=== PATIENT | female | born 2000 | race Two or more races ===

== ENCOUNTER 2019-12-06 10:04 | Inpatient (IN) | payer MEDICAID, OTHER ==
[~2019-12-06] VITALS: Ht 162.6 cm; Wt 55.8 kg
[2019-12-06] MEDS ORDERED: PROCHLORPERAZINE EDISYLATE 5 MG/ML 2ML VIAL IV ONE (11:00)
[2019-12-06] MEDS ORDERED: MORPHINE SULF INJ 2 MG/ML SYRINGE 1ML IV ONE (11:00)
[2019-12-06 11:10] LABS: Basophils # (auto) 0 10 ^3/uL (0-0.2); Basophils % (auto) 0.3 % (0.0-2.0); Eosinophils # (auto) 0.1 10 ^3/uL (0-0.8); Eosinophils % (auto) 0.6 % (0.0-7.0); Hematocrit 39.9 % (36.0-46.0); Hemoglobin 13.9 g/dL (12.2-16.2); Lymphocytes # (auto) 3.2 10 ^3/uL (0.4-5.4); Lymphocytes % (auto) 34.5 % (10.0-50.0); Mean Corpuscular Hemoglobin 28.2 pg (28.0-32.0); Mean Corpuscular Hgb Conc. 34.7 g/dL (32.0-36.0); Mean Corpuscular Volume 81.3 fL (80.0-100.0); Monocytes # (auto) 0.8 10 ^3/uL (0-1.3); Monocytes % (auto) 8.7 % (0.0-12.0); Neutrophils # (auto) 5.1 10 ^3/uL (1.6-8.6); Neutrophils % (auto) 55.9 % (37.0-80.0); Nucleated Red Blood Cells % 0.1 %; Platelet Count (auto) 300 10^3/uL (140-450); Red Blood Cells 4.91 10^6/uL (4.0-5.20); Red Cell Distribution Width 14.9 % (11.8-14.3); White Blood Cell 9.2 10^3/uL (4.4-10.8)
[2019-12-06 11:13] LABS: Urine Bacteria FEW /hpf (None Seen); Urine Blood 2+ /uL (Negative); Urine Hyaline Cast MANY /lpf (0 - 2); Urine Mucus FEW (None Seen); Urine Specific Gravity 1.018 (1.001-1.035); Urine WBC 320 /hpf (0 - 5); Urine WBC Clumps PRESENT /hpf (None Seen)
[2019-12-06 11:27] LABS: BUN/Creatinine Ratio 9.7; Calcium 9.7 mg/dL (8.5-10.1); Potassium 3.1 mmol/L (3.5-5.1)
[2019-12-06] MEDS ORDERED: SODIUM CHLORIDE 0.9% 1,000 ML IVB ONE ×2 (11:28→13:57)
[2019-12-06 11:46] LABS: Magnesium 1.6 mg/dL (1.6-2.6)
[2019-12-06 12:01] LABS: Amphetamine Screen, Urine NEGATIVE (NEGATIVE); Barbiturate Scree,Urine NEGATIVE (NEGATIVE); Benzodiazephine Screen, Urine NEGATIVE (NEGATIVE); Cannabinoid Screen, Urine POSITIVE (NEGATIVE); Cocaine Screen, Urine NEGATIVE (NEGATIVE); Opiate Scree,Urine NEGATIVE (NEGATIVE); Phencyclidine Screen, Urine NEGATIVE (NEGATIVE)
[2019-12-06] MEDS ORDERED: PROMETHAZINE HCL 25 MG/ML 1ML IV PRN (14:00)
[2019-12-06] MEDS ORDERED: HYDROmorphone HCL 2 MG/ML VL IV ONE (14:00)
[2019-12-06] MEDS ORDERED: POTASSIUM EFFERVESENT TAB 25 MEQ PO ONE (14:00)
[2019-12-06] MEDS ORDERED: cefTRIAXone 1GM/50ML D5W 50 ML IV ONE (14:00)
[2019-12-06] MEDS ORDERED: MORPHINE SULF INJ 2 MG/ML SYRINGE 1ML IV PRN (15:45)
[2019-12-06] MEDS ORDERED: NITROGLYCERIN 0.4 MG SL TAB SL PRN (15:45)
[2019-12-06] MEDS: cefTRIAXone 1GM/50ML D5W 50 ML IV SCH (15:50)
[2019-12-06 16:27] LABS: CRP High Sensitivity 0.04 mg/dL (< 0.3)
[2019-12-06] MEDS: SODIUM BICARBONATE 50ML VIAL 50 ML in D5W/SOD CHL 0.45% 1,000 ML IV SCH (16:37)
--- NOTE | 2019-12-06 17:23 | NUR ---
Telemetry admit from ER DERRICK DOHERTY admitted to Telemetry unit after SBAR received. Patient oriented to Estee Morrissey, primary RN, unit, room, bed, and unit policies regarding patient care and visiting hours. Patient now on continuous telemetry monitoring, tele box #51 and telemetry reading on arrival to unit is ST. Patient placed on bedside oxygen, weighed by bedscale and encouraged to call if they need something. All questions and concerns addressed, patient verbalized understanding.
--- NOTE | 2019-12-06 17:24 | NUR ---
Pain Patient is c/o severe pain ,rates it 10/10. Patient is crying and screaming " I cant wait please" Patient's HR is in the 150's . Attempting to calm the patient. Will medicate as prescribed by MD. Bed at lowest locked position, bed side rails up x2. Call light within reach.
[2019-12-06] MEDS: HYDROmorphone HCL 2 MG/ML VL IV PRN ×3 (17:34→23:38)
--- NOTE | 2019-12-06 19:20 | NUR ---
Opening note pt found resting in left lateral position with eyes closed, no visible distress or discomfort at this time. Respirations are currently even and nonlabored on room air. call light is in reach, bed in low locked position.
--- NOTE | 2019-12-06 19:29 | NUR ---
[facility] collected MRSA swab from r/l nare. Swab send to Lab via [facility] system . Patient tolerated well.
--- NOTE | 2019-12-06 19:30 | NUR ---
closing note Patient is comfortably resting in bed, breath sounds are even and unlabored . No c/o pain . Bed is at lowest locked position , call light is within reach and call light is within reach. Care endorsed to NOC RN
[2019-12-06 20:07] LABS: Albumin 3.1 g/dL (3.4-5.0); Calcium 8.9 mg/dL (8.5-10.1); Potassium 3.2 mmol/L (3.5-5.1)
[2019-12-06 20:08] LABS: Phosphorus 4.3 mg/dL (2.5-4.90); Uric Acid 6.5 mg/dL (2.6-6.0)
[2019-12-06 20:10] LABS: Bilirubin, Total 0.3 mg/dL (0.2-1.0); Total Protein 6.2 g/dL (6.4-8.2)
[2019-12-06 20:14] LABS: Protein, Urine 128.2 mg/dL (0.0-11.9)
--- NOTE | 2019-12-06 20:20 | NUR ---
pt is having abdominal pain at her right lower quadrant. she rates the pain as a 10/10. pt will be medicated.
[2019-12-06 22:00] VITALS: BP 148/105
--- NOTE | 2019-12-06 23:30 | NUR ---
pt has c/o pain, rating of 10/10. pt says pain is "unbearable" at right lower quadrant of abdomen. pt will be medicated for pain.
--- NOTE | 2019-12-07 00:52 | NUR ---
endorsed care to Anila LOVING
--- NOTE | 2019-12-07 01:00 | NUR ---
Assumed care from FABIENNE Reilly, patient sleeping at this time and not in distress. Safety precaution in place, will continue to monitor
[2019-12-07] MEDS: HYDROmorphone HCL 2 MG/ML VL IV PRN ×4 (02:38→11:24)
[2019-12-07] MEDS ORDERED: LABE200T18 PO (02:40)
[2019-12-07 05:00] VITALS: BP 150/87
[2019-12-07] MEDS ORDERED: SODIUM BICARBONATE 8.4 % INJ 50ML VIAL IV ONE (05:31)
[2019-12-07] MEDS: SODIUM BICARBONATE 50ML VIAL 50 ML in D5W/SOD CHL 0.45% 1,000 ML IV SCH (06:06)
[2019-12-07 06:24] LABS: Basophils # (auto) 0.1 10 ^3/uL (0-0.2); Basophils % (auto) 0.7 % (0.0-2.0); Eosinophils # (auto) 0.3 10 ^3/uL (0-0.8); Eosinophils % (auto) 3.7 % (0.0-7.0); Hematocrit 32.3 % (36.0-46.0); Hemoglobin 11.5 g/dL (12.2-16.2); Lymphocytes # (auto) 3.9 10 ^3/uL (0.4-5.4); Lymphocytes % (auto) 49.3 % (10.0-50.0); Mean Corpuscular Hemoglobin 28.7 pg (28.0-32.0); Mean Corpuscular Hgb Conc. 35.8 g/dL (32.0-36.0); Mean Corpuscular Volume 80.4 fL (80.0-100.0); Monocytes # (auto) 0.7 10 ^3/uL (0-1.3); Monocytes % (auto) 8.6 % (0.0-12.0); Neutrophils % (auto) 37.7 % (37.0-80.0); Platelet Count (auto) 211 10^3/uL (140-450); Red Blood Cells 4.02 10^6/uL (4.0-5.20); Red Cell Distribution Width 14.7 % (11.8-14.3); White Blood Cell 7.9 10^3/uL (4.4-10.8)
[2019-12-07 06:43] LABS: Calcium 8.8 mg/dL (8.5-10.1)
[2019-12-07 06:48] LABS: BUN/Creatinine Ratio 20.7; Bilirubin, Total 0.4 mg/dL (0.2-1.0); Total Protein 6.1 g/dL (6.4-8.2)
[2019-12-07 06:54] LABS: Potassium 2.7 mmol/L (3.5-5.1)
--- NOTE | 2019-12-07 06:58 | NUR ---
Received a critical Potassium of 2.7. Paged hospitalist, awaiting call back
--- NOTE | 2019-12-07 07:13 | NUR ---
Hospitalist Gen called and updated on patient's status and critical Potassium. New order received at this time and read back. Will put in order and endorse to dayshift RN
[2019-12-07] MEDS ORDERED: POTASSIUM CHL 20 Meq TABLET PO ONE ×2 (07:15→08:45)
[2019-12-07] MEDS: ONDANSETRON HCL 4 MG/2 ML VIAL IV PRN ×2 (07:40→18:38)
--- NOTE | 2019-12-07 07:40 | NUR ---
Opening Note Assumed pt care from NOC nurse. Pt is a/ox4 with no s/s of SOB. Pt has moderate c/o pain 8/10 located in her abdomen; discussed next available pain medication. Discussed POC with pt; pending GI and Nephro consults; pt verbalized understanding. Safety measures maintained with call light within reach, bed in lowest position and side rails up. Will continue to monitor.
--- NOTE | 2019-12-07 07:50 | NUR ---
Elevated HR HR of 160 bpm reading on tele monitor. Assessed pt; currently in 8 pain. Discussed next available pain medication and encouraged pt to take deep breaths, hot packs provided. Will continue to monitor.
[2019-12-07] MEDS: cefTRIAXone 1GM/50ML D5W 50 ML IV SCH (08:26)
[2019-12-07 09:01] VITALS: BP 146/94
[2019-12-07] MEDS: SODIUM CHLORIDE 0.9% 1,000 ML IV SCH ×2 (10:04→23:24)
[2019-12-07] MEDS ORDERED: POTASSIUM CHLORIDE 40 MEQ, LIDOCAINE 1% (LOCAL ANESTH.) 4 ML in SODIUM CHL 0.9% 100 ML IV ONE (10:45)
[2019-12-07] MEDS ORDERED: GOLYTELY 4L KIT PO ONE (10:45)
[2019-12-07] MEDS: HYOSCYAMINE SULF 0.125 MG ODT TAB PO PRN ×2 (11:25→14:48)
[2019-12-07 11:36] LABS: INR 1.08 (0.9-1.15)
--- NOTE | 2019-12-07 12:10 | NUR ---
Dr. Humphrey at Bedside. New orders received. Read back and verified.
[2019-12-07 12:58] VITALS: BP 149/100
[2019-12-07] MEDS: LORazepam 0.5 MG TAB PO PRN (13:01)
[2019-12-07] MEDS ORDERED: LABETALOL HCL 200 MG TAB PO ONE (13:15)
[2019-12-07] MEDS ORDERED: amLODIPine BESYLATE 5 MG TAB PO ONE (14:00)
--- NOTE | 2019-12-07 14:11 | NUR ---
Paged MD Patient pain medication no longer available, patient c/o abdominal pain 06/08 inquiring about possible pain medication.
--- NOTE | 2019-12-07 14:39 | NUR ---
Paged Dr Humphrey Second page regarding the unavilability of pain medication. Will continue to monitor. Pt is c/o 06/08 pain. Addendum: 12/07/19 at 1441 by SHIELA KHAN RN RN called back. Orders given, read back and verified. Will implement.
[2019-12-07] MEDS: MORPHINE SULF INJ 2 MG/ML SYRINGE 1ML IV PRN ×2 (14:49→20:51)
[2019-12-07 15:16] LABS: Urine Bacteria NONE SEEN /hpf (None Seen); Urine Blood 3+ /uL (Negative); Urine Specific Gravity 1.009 (1.001-1.035); Urine WBC 9 /hpf (0 - 5)
[2019-12-07 15:19] LABS: Protein, Urine 20.6 mg/dL (0.0-11.9)
--- NOTE | 2019-12-07 16:04 | NUR ---
Pt C/O Pain Pt c/o pain 9/10 located in her abdomen. Pt provided available pain medication and does not currently have any available. Pt provided hot packs and encouraged pt to take deep breaths. Will continue to monitor.
[2019-12-07 17:30] VITALS: BP 118/80
--- NOTE | 2019-12-07 17:45 | NUR ---
Pt Encouraged to Drink Golytely Pt encouraged to drink bowel prep. Pt provided education on need to consume prep before procedure for tomorrow; pt verbalized understanding.
--- NOTE | 2019-12-07 19:20 | NUR ---
opening note pt A&Ox4. respirations even and nonlabored on room air. POC discussed with pt, and pt was advised to consume golytely before midnight, for up coming procedure on 12-08-19. pt verbalized understanding. pt is ambulatory.
--- NOTE | 2019-12-07 20:25 | NUR ---
pain pt is complaints of pain at abdomen area, 10/10 severity. pt will be medicated upon next administration time. pt offered hot packs at this time.
[2019-12-07 22:05] VITALS: BP 113/67
[2019-12-07] MEDS: LABETALOL HCL 200 MG TAB PO SCH (22:09)
[2019-12-08] MEDS: ONDANSETRON HCL 4 MG/2 ML VIAL IV PRN ×3 (01:53→21:21)
--- NOTE | 2019-12-08 02:45 | NUR ---
pain pt is complaints of pain at abdomen area, 10/10 severity. pt will be medicated
[2019-12-08] MEDS: MORPHINE SULF INJ 2 MG/ML SYRINGE 1ML IV PRN ×4 (03:02→21:21)
[2019-12-08 05:00] VITALS: BP 102/60
[2019-12-08 06:34] LABS: Basophils # (auto) 0 10 ^3/uL (0-0.2); Basophils % (auto) 0.7 % (0.0-2.0); Eosinophils # (auto) 0.2 10 ^3/uL (0-0.8); Eosinophils % (auto) 3.3 % (0.0-7.0); Hematocrit 29.6 % (36.0-46.0); Hemoglobin 10.6 g/dL (12.2-16.2); Lymphocytes # (auto) 3.2 10 ^3/uL (0.4-5.4); Lymphocytes % (auto) 46.8 % (10.0-50.0); Mean Corpuscular Hemoglobin 28.3 pg (28.0-32.0); Mean Corpuscular Hgb Conc. 35.7 g/dL (32.0-36.0); Mean Corpuscular Volume 79.3 fL (80.0-100.0); Monocytes # (auto) 0.5 10 ^3/uL (0-1.3); Monocytes % (auto) 7.9 % (0.0-12.0); Neutrophils # (auto) 2.8 10 ^3/uL (1.6-8.6); Neutrophils % (auto) 41.3 % (37.0-80.0); Nucleated Red Blood Cells % 0.1 %; Platelet Count (auto) 200 10^3/uL (140-450); Red Blood Cells 3.73 10^6/uL (4.0-5.20); Red Cell Distribution Width 14.6 % (11.8-14.3); White Blood Cell 6.9 10^3/uL (4.4-10.8)
[2019-12-08 06:51] LABS: BUN/Creatinine Ratio 8.5; Calcium 8.4 mg/dL (8.5-10.1)
--- NOTE | 2019-12-08 07:08 | NUR ---
closing note pt is A&Ox4. pt c/o of abdominal and back pain 06/08. pt is ready for todays procedure (colonoscopy). pt will be medicated upon next allowable administration time. pt was given hot packs to sooth the pain. bed is in low locked position, call light within reach.
--- NOTE | 2019-12-08 07:20 | NUR ---
Procedure Prep Spoke with Chayito in Pre-Op. RN is aware of pt not completing her golytely prep but is aware of pt's bowel movement status. requested that pt be brought to Pre-Op at 0900. Notified pt. Will continue to monitor.
--- NOTE | 2019-12-08 07:30 | NUR ---
Opening Note Assumed pt care from NOC RN. Pt is a/ox4 with no s/s of distress or SOB. Pt is currently laying in bed with c/o pain 9/10 to abdomen. Discussed next available pain medication with pt and provided her with a hot pack to aid in pain relief. Discussed POC and scheduled colonoscopy with pt; pt verbalized understanding. Safety measures maintained with call light within reach, bed in lowest position and side rails up. Will continue to monitor.
--- NOTE | 2019-12-08 08:52 | NUR ---
Patient taken down to OR Patient taken down via gurney. Patient is A&o X4, no signs of distress. Report given to pre-op staff. All questions were answered.
[2019-12-08] MEDS ORDERED: LIDOCAINE 1% HCL (LOCAL ANESTH.) INJ 20ML MDV ONE (08:57)
[2019-12-08 09:00] VITALS: BP_SYST 128; BP_SYST 97; BP_DIAS 59; BP_DIAS 63
[2019-12-08] MEDS ORDERED: SODIUM CHLORIDE LOCK 10 ML ONE (09:08)
[2019-12-08] MEDS ORDERED: MIDAZOLAM HCL 1MG/1ML-2 ML VIAL ONE (09:08)
[2019-12-08] MEDS ORDERED: fentaNYL CITRATE 100 MCG/2 ML VL ONE (09:08)
[2019-12-08] MEDS ORDERED: ONDANSETRON HCL 4 MG/2 ML VIAL ONE (09:08)
[2019-12-08] MEDS ORDERED: PROPOFOL 10 MG/ML 20 ML IV ONE (09:08)
[2019-12-08] MEDS ORDERED: fentaNYL CITRATE 100 MCG/2 ML VL IV PRN (10:30)
[2019-12-08] MEDS ORDERED: HYDROmorphone HCL 2 MG/ML VL IV PRN (10:30)
[2019-12-08] MEDS ORDERED: MORPHINE SULFATE 4 MG/ML SYR/VIAL IV PRN (10:30)
[2019-12-08] MEDS ORDERED: METOCLOPRAMIDE HCL 5MG/ml INJ 2ml VIAL IV PRN (10:30)
--- NOTE | 2019-12-08 11:00 | NUR ---
Patient back on unit Patient back on unit from OR. A&O X4 no signs and symptoms of distress. Safety measures in place. Bed in lowest position. Call light within reach. Will continue to monitor.
[2019-12-08 11:01] VITALS: BP 132/90
[2019-12-08] MEDS: cefTRIAXone 1GM/50ML D5W 50 ML IV SCH (11:08)
[2019-12-08] MEDS: amLODIPine BESYLATE 5 MG TAB PO SCH (11:09)
[2019-12-08] MEDS: SODIUM CHLORIDE 0.9% 1,000 ML IV SCH ×2 (11:10→14:27)
[2019-12-08] MEDS: LABETALOL HCL 200 MG TAB PO SCH ×2 (11:10→22:17)
--- NOTE | 2019-12-08 11:27 | NUR ---
Pt Frequently Takes off Tele Monitor Pt wishes to take off tele box when ambulating. Provided pt with education regarding purpose of monitor and need to keep it on. Pt verbalized understanding. Will continue to remind pt to keep monitor on.
--- NOTE | 2019-12-08 11:32 | NUR ---
Dr Humphrey at bedside MD to see pt. Discussed POC with pt and possible d/c today pending lab results. No new orders at this time. Will continue to monitor.
[2019-12-08] MEDS: HYOSCYAMINE SULF 0.125 MG ODT TAB PO PRN ×2 (12:32→20:39)
[2019-12-08 13:00] VITALS: BP 106/67
[2019-12-08] MEDS: LORazepam 0.5 MG TAB PO PRN (13:41)
[2019-12-08] MEDS ORDERED: POTASSIUM EFFERVESENT TAB 25 MEQ PO ONE (13:45)
[2019-12-08 17:00] VITALS: BP 98/52
--- NOTE | 2019-12-08 19:25 | NUR ---
opening note pt A&Ox4. respirations are even and nonlabored on room air. pt advised to keep tele monitor connected at all times. POC discussed with pt. call light within reach.
--- NOTE | 2019-12-08 21:10 | NUR ---
pain pt c/o severe pain at abdominal area, 10/10 rating. pt is crying. pt will be medicated appropriately.
[2019-12-08 22:00] VITALS: BP 113/72
--- NOTE | 2019-12-09 02:08 | NUR ---
pt sleeping in rt lateral position with eyes closed. no s/s of pain or discomfort at this time. call light within reach.
--- NOTE | 2019-12-09 03:12 | NUR ---
closing note pt c/o of abdominal and back pain. pt is grimacing and crying. hot packs given to patient. pt will be medicated upon next available administration time. Addendum: 12/09/19 at 0655 by Tommie Hamm RN CORRECTION : "PAIN NOTE"
[2019-12-09] MEDS: MORPHINE SULF INJ 2 MG/ML SYRINGE 1ML IV PRN ×2 (03:24→09:22)
[2019-12-09] MEDS: ONDANSETRON HCL 4 MG/2 ML VIAL IV PRN ×2 (03:25→09:22)
[2019-12-09 05:00] VITALS: BP 121/73
--- NOTE | 2019-12-09 06:49 | NUR ---
closing note pt is A&Ox4. respirations even and nonlabored on room air. bed in low locked position, call light within reach.
[2019-12-09] MEDS: HYOSCYAMINE SULF 0.125 MG ODT TAB PO PRN (08:00)
--- NOTE | 2019-12-09 08:11 | NUR ---
OPENING SHIFT NOTE Assumed care of patient. PT is awake and alert. No S/S of distress/SOB. PT reported 10/10 abdominal pain. Will administer PRN pain medication as ordered and reassess. Instructed on POC and to call for assist PRN. Bed low and locked position with side rails up x2. Call light within reach. Will continue to monitor for changes Q1hr and PRN.
[2019-12-09] MEDS: cefTRIAXone 1GM/50ML D5W 50 ML IV SCH (08:41)
[2019-12-09 08:55] VITALS: BP 130/87
[2019-12-09] MEDS: LABETALOL HCL 200 MG TAB PO SCH (09:26)
[2019-12-09] MEDS: amLODIPine BESYLATE 5 MG TAB PO SCH (09:26)
[2019-12-09] MEDS ORDERED: POTASSIUM EFFERVESENT TAB 25 MEQ PO ONE (10:00)
--- NOTE | 2019-12-09 10:18 | NUR ---
PT SAW DR LAZO. PT WAS TOLD SHE WOULD BE DISCHARGED. STATED SHE DIDNT WANT TO WAIT AND ASKED TO LEAVE AMA. WILL HAVE HER SIGN AMA FORM.
[2019-12-09] MEDS: SODIUM CHLORIDE 0.9% 1,000 ML IV SCH (10:52)
--- NOTE | 2019-12-09 11:12 | NUR ---
AMA FORM SIGNED. PT AWAITING PICKUP BY FAMILY MEMBER. SAID "THEY WILL BE HERE IN 15 MINUTES".
--- NOTE | 2019-12-09 11:52 | NUR ---
AMA Note DERRICK DOHERTY stated intent to leave the hospital Against Medical Advice (AMA). Patient received discharge order but did not want to follow discharge process and wished to leave AMA. Patient encouraged to stay for further treatment/stabilization. Patient advised of the risks and benefits of leaving AMA. Patient verbalized understanding. Patient encouraged to return to the ER if symptoms do not improve or worsen.
== END 2019-12-09 11:48 | disposition left against medical advice (07) | DRG 282 ==
LOC: EDBD 10:04 → ER 10:04 → TELE 10:05 → TELE-WESTW 17:13
PROVIDERS: ADMIT Nurse Practitioner Acute Care; ATTEND Internal Medicine Nephrology
PROC: 0DBN8ZX Excision of Sigmoid Colon, Via Natural or Artificial Opening Endoscopic, Diagnostic (ICD-10-PCS; principal; 2019-12-08 09:36)
DX: K85.90 Acute pancreatitis without necrosis or infection, unspecified (principal); N17.0 Acute kidney failure with tubular necrosis; N18.4 Chronic kidney disease, stage 4 (severe); N30.00 Acute cystitis without hematuria; E86.0 Dehydration; I12.9 Hypertensive chronic kidney disease with stage 1 through stage 4 chronic kidney disease, or unspecified chronic kidney disease; E87.1 Hypo-osmolality and hyponatremia; E87.6 Hypokalemia; F12.10 Cannabis abuse, uncomplicated; K80.20 Calculus of gallbladder without cholecystitis without obstruction; Z79.899 Other long term (current) drug therapy
CPT/HCPCS: 36415; 45384; 71045; 74176; 76700; 80048; 80053; 80061; 80307; 81001; 81025; 82550; 82570; 82784; 83516; 83520; 83690; 83735; 84100; 84132; 84156; 84300; 84550; 85025; 85610; 85652; 86038; 86141; 86160; 86255; 86256; 86850; 86900; 86901; 87040; 87081; 87086; 96361; 96365; 96375; G0378; J0696; J2001; J2250; J2405; J2704

== ENCOUNTER 2019-12-13 09:42 | Emergency (ER) | payer MEDICAID ==
[~2019-12-13] VITALS: Ht 162.6 cm; Wt 49.9 kg
[~2019-12-13 09:42] MED LIST: LABE200T18 PO
[2019-12-13 10:17] LABS: Basophils # (auto) 0.1 10 ^3/uL (0-0.2); Basophils % (auto) 0.7 % (0.0-2.0); Eosinophils # (auto) 0.1 10 ^3/uL (0-0.8); Hematocrit 39.1 % (36.0-46.0); Hemoglobin 13.3 g/dL (12.2-16.2); Lymphocytes # (auto) 2.9 10 ^3/uL (0.4-5.4); Mean Corpuscular Hgb Conc. 34.1 g/dL (32.0-36.0); Mean Corpuscular Volume 82.1 fL (80.0-100.0); Monocytes # (auto) 0.5 10 ^3/uL (0-1.3); Monocytes % (auto) 6.3 % (0.0-12.0); Neutrophils # (auto) 3.9 10 ^3/uL (1.6-8.6); Nucleated Red Blood Cells % 0.1 %; Platelet Count (auto) 218 10^3/uL (140-450); Red Blood Cells 4.76 10^6/uL (4.0-5.20); Red Cell Distribution Width 14.8 % (11.8-14.3); White Blood Cell 7.4 10^3/uL (4.4-10.8)
[2019-12-13 10:20] LABS: Urine Bacteria NONE SEEN /hpf (None Seen); Urine Blood Negative /uL (Negative); Urine Specific Gravity 1.008 (1.001-1.035); Urine WBC 6 /hpf (0 - 5)
[2019-12-13 10:35] LABS: Albumin 3.9 g/dL (3.4-5.0); Calcium 9.7 mg/dL (8.5-10.1); Potassium 3.2 mmol/L (3.5-5.1)
[2019-12-13 10:39] LABS: BUN/Creatinine Ratio 19.8; Bilirubin, Total 0.5 mg/dL (0.2-1.0); Total Protein 7.9 g/dL (6.4-8.2)
[2019-12-13] MEDS ORDERED: HYDROcodone-ACET 5/325MG TAB PO ONE (12:00)
[2019-12-13] MEDS ORDERED: POTASSIUM EFFERVESENT TAB 25 MEQ PO ONE (12:00)
[2019-12-13 12:44] VITALS: BP 120/74
== END 2019-12-13 12:52 | disposition left against medical advice (07) ==
LOC: ER 09:42 → EDBD 09:42 → EDUNIT# 09:42 → ER 12:52
DX: K85.90 Acute pancreatitis without necrosis or infection, unspecified (principal); E87.6 Hypokalemia; I10 Essential (primary) hypertension; Z79.899 Other long term (current) drug therapy
CPT/HCPCS: 36415; 80053; 81001; 81025; 82150; 83690; 85025

== ENCOUNTER 2020-02-19 08:36 | Emergency (ER) | payer MEDICAID ==
[~2020-02-19] VITALS: Ht 162.6 cm; Wt 49.9 kg
[2020-02-19] MEDS ORDERED: SODIUM CHLORIDE 0.9% 1,000 ML IV ONE ×2 (08:54)
[2020-02-19 09:19] LABS: Basophils # (auto) 0 10 ^3/uL (0-0.2); Basophils % (auto) 0.1 % (0.0-2.0); Eosinophils # (auto) 0 10 ^3/uL (0-0.8); Eosinophils % (auto) 0.1 % (0.0-7.0); Hematocrit 36.8 % (36.0-46.0); Hemoglobin 12.9 g/dL (12.2-16.2); Lymphocytes # (auto) 1.4 10 ^3/uL (0.4-5.4); Lymphocytes % (auto) 19.7 % (10.0-50.0); Mean Corpuscular Hemoglobin 29.1 pg (28.0-32.0); Mean Corpuscular Hgb Conc. 35.2 g/dL (32.0-36.0); Mean Corpuscular Volume 82.7 fL (80.0-100.0); Monocytes # (auto) 0.3 10 ^3/uL (0-1.3); Neutrophils # (auto) 5.2 10 ^3/uL (1.6-8.6); Neutrophils % (auto) 75.1 % (37.0-80.0); Platelet Count (auto) 166 10^3/uL (140-450); Red Blood Cells 4.45 10^6/uL (4.0-5.20); Red Cell Distribution Width 13.8 % (11.8-14.3)
[2020-02-19 09:34] LABS: INR 1.07 (0.9-1.15); Partial Thromboplastin Time 25.7 sec (23.64-32.05)
[2020-02-19 09:41] LABS: Chloride 102 mmol/L (98-107); Potassium 3.6 mmol/L (3.5-5.1); Sodium 134 mmol/L (136-145)
[2020-02-19 09:52] LABS: Alanine Aminotransferase 36 U/L (13-56); Albumin 4.2 g/dL (3.4-5.0); Alkaline Phosphatase 64 U/L (45-117); Anion Gap 15 (5-15); Aspartate Aminotransferase 20 U/L (15-37); BUN/Creatinine Ratio 17.5; Bilirubin, Total 0.8 mg/dL (0.2-1.0); Blood Urea Nitrogen 18 mg/dL (7-18); Calcium 9.6 mg/dL (8.5-10.1); Carbon Dioxide 17 mmol/L (21-32); GFR African American 86 mL/min; GFR Non-African American 71 mL/min; Glucose 99 mg/dL (74-106); Lipase 46 U/L (73-393); Total Protein 7.5 g/dL (6.4-8.2)
[2020-02-19 12:12] VITALS: BP 130/93
[2020-02-19 12:53] LABS: Urine Bacteria NONE SEEN /hpf (None Seen); Urine Blood 3+ /uL (Negative); Urine Mucus FEW (None Seen); Urine Specific Gravity 1.036 (1.001-1.035); Urine WBC 60 /hpf (0 - 5)
== END 2020-02-19 13:37 | disposition left against medical advice (07) ==
LOC: EDBD 08:36 → ER 08:36
DX: M54.9 Dorsalgia, unspecified (principal); E86.0 Dehydration
CPT/HCPCS: 36415; 71045; 74176; 80053; 81001; 83690; 84484; 85025; 85610; 85730

== ENCOUNTER 2020-05-16 08:06 | Emergency (ER) | payer MEDICAID ==
[~2020-05-16] VITALS: Ht 162.6 cm; Wt 54.4 kg
[2020-05-16 08:38] LABS: Basophils # (auto) 0 10 ^3/uL (0-0.2); Basophils % (auto) 0.6 % (0.0-2.0); Eosinophils # (auto) 0 10 ^3/uL (0-0.8); Eosinophils % (auto) 0.4 % (0.0-7.0); Hematocrit 37.7 % (36.0-46.0); Hemoglobin 12.6 g/dL (12.2-16.2); Lymphocytes # (auto) 1.2 10 ^3/uL (0.4-5.4); Lymphocytes % (auto) 18.1 % (10.0-50.0); Mean Corpuscular Hemoglobin 28.1 pg (28.0-32.0); Mean Corpuscular Hgb Conc. 33.4 g/dL (32.0-36.0); Mean Corpuscular Volume 84.2 fL (80.0-100.0); Monocytes # (auto) 0.6 10 ^3/uL (0-1.3); Monocytes % (auto) 8.6 % (0.0-12.0); Neutrophils # (auto) 4.7 10 ^3/uL (1.6-8.6); Neutrophils % (auto) 72.3 % (37.0-80.0); Nucleated Red Blood Cells % 0.1 %; Platelet Count (auto) 176 10^3/uL (140-450); Red Blood Cells 4.47 10^6/uL (4.0-5.20); Red Cell Distribution Width 13.9 % (11.8-14.3); White Blood Cell 6.5 10^3/uL (4.4-10.8)
[2020-05-16 09:00] LABS: Albumin 4.1 g/dL (3.4-5.0)
[2020-05-16] MEDS ORDERED: ONDANSETRON HCL 4 MG/2 ML VIAL IV ONE (09:00)
[2020-05-16] MEDS ORDERED: KETOROLAC TROMETH 30 MG/ML 1ML VIAL IV ONE (09:00)
[2020-05-16 09:06] LABS: Calcium 9.6 mg/dL (8.5-10.1)
[2020-05-16 09:39] LABS: Urine Bacteria FEW /hpf (None Seen); Urine Blood 1+ /uL (Negative); Urine Mucus FEW (None Seen); Urine Specific Gravity 1.027 (1.001-1.035); Urine WBC 7 /hpf (0 - 5)
[2020-05-16 10:08] LABS: Bilirubin, Total 0.9 mg/dL (0.2-1.0); Total Protein 7.7 g/dL (6.4-8.2)
[2020-05-16 10:15] LABS: Alcohol, Urine < 3.0 mg/dL (0-10); Amphetamine Screen, Urine NEGATIVE (NEGATIVE); Barbiturate Scree,Urine NEGATIVE (NEGATIVE); Benzodiazephine Screen, Urine NEGATIVE (NEGATIVE); Cannabinoid Screen, Urine POSITIVE (NEGATIVE); Cocaine Screen, Urine NEGATIVE (NEGATIVE); Opiate Scree,Urine NEGATIVE (NEGATIVE); Phencyclidine Screen, Urine NEGATIVE (NEGATIVE)
[2020-05-16 10:35] VITALS: BP 128/85
[2020-05-16 10:49] LABS: Potassium 3.5 mmol/L (3.5-5.1)
[2020-05-16 10:53] LABS: BUN/Creatinine Ratio 15.8
== END 2020-05-16 11:48 | disposition home or self-care (01) ==
LOC: EDBD 08:06 → ER 08:06
DX: R10.84 Generalized abdominal pain (principal); E86.0 Dehydration; N39.0 Urinary tract infection, site not specified; R11.2 Nausea with vomiting, unspecified; I10 Essential (primary) hypertension; Z79.899 Other long term (current) drug therapy
CPT/HCPCS: 36415; 74176; 80053; 80307; 81001; 81025; 83690; 85025; 96374; 96375; 99284; J1885; J2405

== ENCOUNTER → 2020-05-29 20:51 | Emergency (ER) | payer MEDICAID ==
[~2020-05-29] VITALS: Ht 160 cm; Wt 45.4 kg
[~2020-05-29 20:51] MED LIST changes: +IOHEXOL 300 MG/ML 100ML BOTTLE IJ ONE; +MORPHINE SULF INJ 2 MG/ML SYRINGE 1ML IV ONE; +MORPHINE SULFATE 4 MG/ML SYR/VIAL IV ONE; +ONDANSETRON HCL 4 MG/2 ML VIAL IV ONE; +SODIUM CHLORIDE 0.9% 1,000 ML IV ONE; +cefTRIAXone 1GM/50ML D5W 50 ML IV ONE; +metroNIDAZOLE 500MG/100ML 100 ML IV ONE
[2020-05-29 21:49] LABS: Urine Bacteria NONE SEEN /hpf (None Seen); Urine Blood Negative /uL (Negative); Urine Mucus FEW (None Seen); Urine Specific Gravity 1.035 (1.001-1.035); Urine WBC 8 /hpf (0 - 5)
[2020-05-29 22:22] LABS: Basophils # (auto) 0.1 10 ^3/uL (0-0.2); Basophils % (auto) 0.8 % (0.0-2.0); Eosinophils # (auto) 0.1 10 ^3/uL (0-0.8); Hematocrit 29.2 % (36.0-46.0); Hemoglobin 10.4 g/dL (12.2-16.2); Lymphocytes % (auto) 32.4 % (10.0-50.0); Mean Corpuscular Hemoglobin 29.5 pg (28.0-32.0); Mean Corpuscular Hgb Conc. 35.7 g/dL (32.0-36.0); Mean Corpuscular Volume 82.7 fL (80.0-100.0); Monocytes # (auto) 0.7 10 ^3/uL (0-1.3); Monocytes % (auto) 10.3 % (0.0-12.0); Neutrophils # (auto) 3.5 10 ^3/uL (1.6-8.6); Neutrophils % (auto) 55.5 % (37.0-80.0); Nucleated Red Blood Cells % 0.1 %; Platelet Count (auto) 142 10^3/uL (140-450); Red Blood Cells 3.53 10^6/uL (4.0-5.20); Red Cell Distribution Width 13.9 % (11.8-14.3); White Blood Cell 6.3 10^3/uL (4.4-10.8)
[2020-05-29 22:40] LABS: BUN/Creatinine Ratio 22.5; Calcium 8.2 mg/dL (8.5-10.1); Potassium 3.2 mmol/L (3.5-5.1)
[2020-05-29 22:43] LABS: Bilirubin, Total 0.4 mg/dL (0.2-1.0); Total Protein 5.9 g/dL (6.4-8.2)
[2020-05-30 00:11] VITALS: BP 114/76
== END | disposition home or self-care (01) ==
LOC: EDUNIT# 20:44 → ER 20:51 → EDBD 20:51 → ER 05-30 00:59
DX: E80.20 Unspecified porphyria (principal); R10.13 Epigastric pain; F41.9 Anxiety disorder, unspecified
CPT/HCPCS: 36415; 74176; 74177; 80053; 81001; 81025; 82150; 83690; 85025; 96365; 96368; 96375; 96376; 99285; J0696; J2270; J2405; J3490; Q9967

== ENCOUNTER 2024-12-24 04:58 | Emergency (ER) | payer OTHER, MEDICAID ==
[~2024-12-24] VITALS: Ht 162.6 cm; Wt 52.8 kg
[~2024-12-24 04:58] MED LIST changes: -IOHEXOL 300 MG/ML 100ML BOTTLE IJ ONE; -LABE200T18 PO; +LABE200T33 PO; -MORPHINE SULF INJ 2 MG/ML SYRINGE 1ML IV ONE; -MORPHINE SULFATE 4 MG/ML SYR/VIAL IV ONE; -ONDANSETRON HCL 4 MG/2 ML VIAL IV ONE; -SODIUM CHLORIDE 0.9% 1,000 ML IV ONE; -cefTRIAXone 1GM/50ML D5W 50 ML IV ONE; -metroNIDAZOLE 500MG/100ML 100 ML IV ONE
--- NOTE | 2024-12-24 05:36 | ED.PDOC ---
Psychiatric HPI Comments C/C of porphyria flare-up. Pt has multiple complaints and very anxious. Patient reports mid to upper abdominal pain 8/10 on pain scale achy and sharp in nature. She also notes has been having blood in her urine states she is not on her menstrual cycle at this time. Patient reports history of pancreatitis history of cholecystectomy. Denies diarrhea, dysuria, dizziness, difficulty breathing chest pain, shortness breath denies HI, WAHL, SI, and SA. Chief Complaint: Anxiety Time Seen by MD: 05:32 Primary Care Provider: FAITH Reviewed Notes: Nurses Notes, Medications, Allergies Information Source: Patient Mode of Arrival: Ambulatory Past Medical History PAST MEDICAL HISTORY: HTN Surgical History: Denies all surgeries REPRODUCTION ARTIST History: No Pertinent REPRODUCTION ARTIST History Family History Family History: Reviewed,noncontributory to illness Social History Smoker: Non-Smoker Alcohol: Occasionally Drugs: Marijuana Lives In: Home Constitutional: denies: chills, diaphoresis, fatigue, fever, malaise, sweats, weakness, others EENTM: denies: blurred vision, double vision, ear bleeding, ear discharge, ear drainage, ear pain, ear ringing, eye pain, eye redness, hearing loss, mouth pain, mouth swelling, nasal discharge, nose bleeding, nose congestion, nose pain, photophobia, tearing, throat pain, throat swelling, voice changes, others Respiratory: denies: cough, hemoptysis, orthopnea, SOB at rest, shortness of breath, SOB with excertion, stridor, wheezing, others Cardiovascular: denies: chest pain, dizzy spells, diaphoresis, Dyspnea on exertion, edema, irregular heart beat, left arm pain, lightheadedness, palpitations, PND, syncope, others Gastrointestinal: reports: abdomen distended, abdominal pain, nausea, vomiting; denies: blood streaked bowels, constipated, diarrhea, dysphagia, difficulty swallowing, hematemesis, melena, poor appetite, poor fluid intake, rectal bleeding, rectal pain, others Genitourinary: reports: hematuria; denies: abnormal vagina bleeding, burning, dyspareunia, dysuria, flank pain, frequency, incontinence, pain, , vagina discharge, urgency, others Neurological: denies: dizziness, fainting, headache, left sided numbness, left sided weakness, numbness, paresthesia, pre-existing deficit, right sided numbness, right sided weakness, seizure, speech problems, tingling, tremors, weakness, others Musculoskeletal: denies: back pain, gout, joint pain, joint swelling, muscle pain, muscle stiffness, neck pain, others Integumetry: denies: bruises, change in color, change in hair/nails, dryness, laceration, lesions, lumps, rash, wounds, others Allergic/Immunocompromised: denies: Difficulty Healing, Frequent Infections, Hives, Itching, others Hematologic/Lymphatic: denies: anemia, blood clots, easy bleeding, easy bruising, swollen glands, others Endocrine: denies: excessive hunger, excessive sweating, excessive thirst, excessive urination, flushing, intolerance to cold, intolerance to heat, unexplained weight gain, unexplained weight loss, others Psychiatric: denies: anxiety, bipolar disorder, depression, hopeless, panic disorder, schizophrenia, sleepless, suicidal, others Physical Exam General Appearance: No Apparent Distress, Normal HEENT: Normal ENT Inspection, Pharynx Normal, TMs Normal Neck: Full Range of Motion, Non-Tender Respiratory: Lungs Clear, No Respiratory Distress, Normal Breath Sounds Cardiovascular: No Edema, No JVD, No Murmur, No Gallop, Normal Peripheral Puls es, Regular Rate/Rhythm Breast Exam: Deferred Gastrointestinal: Distended, Epigastric (Tenderness on palpation), No Organomegaly, No Pulsatile Mass, Normal Bowel Sounds, Soft, Tenderness (Lower mid and upper abdominal tenderness) Genitalia: Deferred Pelvic: Deferred Rectal: Deferred Extremities: No calf tenderness, Normal capillary refill, Normal inspection, Normal range of motion, Non-tender, No pedal edema Musculoskeletal : Apperance: Normal Neurologic: Alert, web mobile designer II-XII nml as Tested, No Motor Deficits, Normal Affect, Normal Mood, No Sensory Deficits Cerebellar Function: Normal Reflexes: Normal Skin: Dry, Normal Color, Warm Lymphatic: No Adenopathy Was a procedure done? Was a procedure done?: No Psych Differential Dx Psych. Differential Dx: Anxiety, Panic Disorder OD Differential Dx: Depression, Substance Abuse Other Differentail Dx Pancreatitis, gastroenteritis, acute cystitis with hematuria X-Ray, Labs, Meds, VS Vital Signs Date Time Temp Pulse Resp B/P (MAP) Pulse Ox O2 Delivery O2 Flow Rate FiO2 12/24/24 10:35 64 13 116/60 12/24/24 10:00 60 16 116/60 (78) 97 12/24/24 08:50 98 15 118/79 12/24/24 08:00 Room Air* 0 21 12/24/24 08:00 97.3 86 14 118/79 (92) 96 97.3 12/24/24 07:55 111/63 12/24/24 07:27 97.9 107 18 133/88 (103) 96 97.9 12/24/24 06:32 98.4 111 20 124/77 (93) 98 98.4 12/24/24 06:32 20 98 Room Air 12/24/24 05:14 99.4 83 17 133/96 (108) 98 99.4 Lab Test 12/24/24 08:18 12/24/24 05:57 Range/Units Urine Color Yellow Yellow Urine Clarity Clear Clear Urine pH 7.0 5.0-9.0 Urine Specific [place] 1.019 1.001-1.035 Urine Protein Negative Negative Urine Ketones Negative Negative Urine Blood Trace H Negative /uL Urine Nitrite Negative Negative Urine Bilirubin 1+ H Negative Urine Urobilinogen 2 H Negative mg/dL Urine Leukocyte Esterase 2+ Negative /uL Urine RBC 5 0 - 4 /hpf Urine Microscopic WBC 21 H 0-5 /HPF Urine Squamous Epithelial Cells Few <5 /hpf Urine Bacteria None seen None Seen /hpf Urine Glucose Normal Normal mg/dL Urine Test Negative Negative Urine Opiates Screen Neg NEGATIVE Urine Fentanyl Screen Neg NEGATIVE Urine Barbiturates Screen Neg NEGATIVE Urine Phencyclidine Screen Neg NEGATIVE Urine Amphetamines Screen Neg NEGATIVE Urine Benzodiazepines Screen Neg NEGATIVE Urine Cocaine Screen Neg NEGATIVE Urine Cannabinoids Screen Pos NEGATIVE White Blood Count 5.2 4.4-10.8 10^3/uL Red Blood Count 4.15 4.0-5.20 10^6/uL Hemoglobin 11.9 L 12.2-16.2 g/dL Hematocrit 34.8 L 36.0-46.0 % Mean Corpuscular Volume 83.9 80.0-100.0 fL Mean Corpuscular Hemoglobin 28.6 28.0-32.0 pg Mean Corpuscular Hemoglobin Concent 34.1 32.0-36.0 g/dL Red Cell Distribution Width 13.7 11.8-14.3 % Platelet Count 158 140-450 10^3/uL Mean Platelet Volume 9.4 6.9-10.8 fL Neutrophils (%) (Auto) 64.6 37.0-80.0 % Lymphocytes (%) (Auto) 22.9 10.0-50.0 % Monocytes (%) (Auto) 7.4 0.0-12.0 % Eosinophils (%) (Auto) 3.6 0.0-7.0 % Basophils (%) (Auto) 1.5 0.0-2.0 % Neutrophils # (Auto) 3.4 1.6-8.6 10 ^3/uL Lymphocytes # (Auto) 1.2 0.4-5.4 10 ^3/uL Monocytes # (Auto) 0.4 0-1.3 10 ^3/uL Eosinophils # (Auto) 0.2 0-0.8 10 ^3/uL Basophils # (Auto) 0.1 0-0.2 10 ^3/uL Nucleated Red Blood Cells 0.1 % Sodium Level 139 136-145 mmol/L Potassium Level 3.7 3.5-5.1 mmol/L Chloride Level 109 H 98-107 mmol/L Carbon Dioxide Level 22 20-31 mmol/L Anion Gap 8 5-15 Blood Urea Nitrogen 26 H 9-23 mg/dL Creatinine 1.33 H 0.550-1.02 mg/dL Glomerular Filtration Rate Calc 57 >90 mL/min BUN/Creatinine Ratio 19.5 10.0-20.0 Serum Glucose 112 H 74-106 mg/dL Calcium Level 9.6 8.7-10.4 mg/dL Total Bilirubin 0.4 0.2-1.0 mg/dL Aspartate Amino Transferase (AST) 29 13-40 U/L Alanine Aminotransferase (ALT) 28 7-40 U/L Alkaline Phosphatase 94 46-116 U/L Total Protein 7.2 5.7-8.2 g/dL Albumin 4.5 3.2-4.8 g/dL Lipase 42 12-53 U/L Current Medications Medications (Trade) Dose Ordered Sig/Kiana Route Start Time Stop Time Status Last Admin Ondansetron HCl (Zofran) 4 mg ONCE ONCE IV 12/24/24 05:45 12/24/24 05:46 DC 12/24/24 07:33 Sodium Chloride 1,000 ml @ 1,000 mls/hr Q1H ONCE IV 12/24/24 05:45 12/24/24 06:44 DC 12/24/24 07:34 Fentanyl Citrate 12.5 mcg ONCE ONCE IV 12/24/24 07:45 12/24/24 07:46 DC 12/24/24 07:55 Morphine Sulfate 2 mg ONCE ONCE IV 12/24/24 08:45 12/24/24 08:46 DC 12/24/24 08:50 Haloperidol Lactate (Haldol) 5 mg ONCE ONCE IM 12/24/24 08:45 12/24/24 08:46 DC 12/24/24 09:14 Diphenhydramine HCl (Benadryl Injection) 50 mg ONCE ONCE IM 12/24/24 08:45 12/24/24 08:46 DC 12/24/24 09:14 X-Ray, Labs, Meds, VS Comment IMAGING: CT abdomen and pelvis without contrast pending LAB WORK: CBC CMP Lipase UA UDS Urine MEDICATION: Normal saline bolus IV Zofran 4 mg IV push DIFFERENTIAL: Porphyria flare-up. Pancreatitis Acute cystitis with hematuria Anxiety with acute panic attack PLAN: Pending imaging lab work results and response to medications Time of 1ST Reevaluation: 05:35 Reevaluation 1ST: Unchanged Patient Education/Counseling: Diagnosis, Treatment, Prognosis, Need For Follow Up Family Education/Counseling: No Family Present Additional Information pt reports to have porphyria. however, ALA adn urine porphyrinogen are not available to be ordered here. ct and labs are unremarkable, besides uti. i will consult [facility] to have pt admitted for further eval of possible porphyria, however, pt declined. she states that she feels well and wants to go home. she has an appointment with [facility] in AM Departure 1 Departure Time of Disposition: 10:21 Impression: Primary Impression: Acute abdominal pain Additional Impression: UTI (urinary tract infection) Qualified Codes: N30.00 - Acute cystitis without hematuria Disposition: HOME / SELF CARE / HOMELESS Condition: Stable e-Prescriptions Cephalexin Monohydrate (Cephalexin) 500 Mg Tab 1 TAB PO QID, #40 TAB Prov: NIKKI GOODRICH MD 12/24/24 Discharged With: Self Critical Care Note Critical Care Time?: Yes (55 min-critical care time only) Critical care comment: Due to concerns for patients condition deteriorating, the care required my highest level of attention and readiness to intervene. I assessed the patient, reviewed the medical records, ordered the appropriate tests and treatments, then reassessed for results and responsiveness. I communicated with medical personnel and consultants and formulated a plan of care. Total critical care time excludes any procedures Stability Stability form required: WASHINGTON Shultz Dec 24, 2024 05:36 NIKKI GOODRICH MD Dec 24, 2024 10:22
[2024-12-24 06:23] LABS: Basophils # (auto) 0.1 10 ^3/uL (0-0.2); Basophils % (auto) 1.5 % (0.0-2.0); Eosinophils # (auto) 0.2 10 ^3/uL (0-0.8); Eosinophils % (auto) 3.6 % (0.0-7.0); Hematocrit 34.8 % (36.0-46.0); Hemoglobin 11.9 g/dL (12.2-16.2); Lymphocytes # (auto) 1.2 10 ^3/uL (0.4-5.4); Lymphocytes % (auto) 22.9 % (10.0-50.0); Mean Corpuscular Hemoglobin 28.6 pg (28.0-32.0); Mean Corpuscular Hgb Conc. 34.1 g/dL (32.0-36.0); Mean Corpuscular Volume 83.9 fL (80.0-100.0); Monocytes # (auto) 0.4 10 ^3/uL (0-1.3); Monocytes % (auto) 7.4 % (0.0-12.0); Neutrophils # (auto) 3.4 10 ^3/uL (1.6-8.6); Neutrophils % (auto) 64.6 % (37.0-80.0); Nucleated Red Blood Cells % 0.1 %; Platelet Count (auto) 158 10^3/uL (140-450); Red Blood Cells 4.15 10^6/uL (4.0-5.20); Red Cell Distribution Width 13.7 % (11.8-14.3); White Blood Cell 5.2 10^3/uL (4.4-10.8)
[2024-12-24 06:38] LABS: Alanine Aminotransferase 28 U/L (7-40); Alkaline Phosphatase 94 U/L (46-116)
[2024-12-24 06:39] LABS: Albumin 4.5 g/dL (3.2-4.8); Anion Gap 8 (5-15); Aspartate Aminotransferase 29 U/L (13-40); BUN/Creatinine Ratio 19.5 (10.0-20.0); Bilirubin, Total 0.4 mg/dL (0.2-1.0); Calcium 9.6 mg/dL (8.7-10.4); Carbon Dioxide 22 mmol/L (20-31); Potassium 3.7 mmol/L (3.5-5.1); Sodium 139 mmol/L (136-145); Total Protein 7.2 g/dL (5.7-8.2)
[2024-12-24 06:40] LABS: Blood Urea Nitrogen 26 mg/dL (9-23); Chloride 109 mmol/L (98-107); Glucose 112 mg/dL (74-106)
[2024-12-24] MEDS: ONDANSETRON HCL 4 MG/2 ML VIAL IV ONE (07:33)
[2024-12-24] MEDS: SODIUM CHLORIDE 0.9% 1,000 ML IV ONE (07:34)
[2024-12-24] MEDS: fentaNYL CITRATE 100 MCG/2 ML VL IV ONE (07:55)
[2024-12-24 08:00] VITALS: TEMP 97.3
[2024-12-24 08:20] LABS: Urine Bacteria None Seen /hpf (None Seen)
[2024-12-24 08:31] LABS: Urine Blood TRACE /uL (Negative); Urine Clarity Clear (Clear); Urine Color Yellow (Yellow); Urine Protein, UAD Negative (Negative); Urine Specific Gravity 1.019 (1.001-1.035); Urine Squamous Epithelial Cell FEW /hpf (<5); Urine Urobilinogen 2 mg/dL (Negative); Urine WBC 21 /HPF (0-5)
[2024-12-24 08:44] LABS: Cocaine Screen, Urine Neg (NEGATIVE)
[2024-12-24 08:48] LABS: Amphetamine Screen, Urine Neg (NEGATIVE); Barbiturate Scree,Urine Neg (NEGATIVE); Benzodiazephine Screen, Urine Neg (NEGATIVE); Cannabinoid Screen, Urine Pos (NEGATIVE); Opiate Scree,Urine Neg (NEGATIVE); Phencyclidine Screen, Urine Neg (NEGATIVE)
[2024-12-24] MEDS: MORPHINE SULFATE INJ 2 MG/ml SYRG IV ONE (08:50)
[2024-12-24] MEDS: HALOPERIDOL LACTATE 5 MG/ML INJ VIAL IM ONE (09:14)
[2024-12-24] MEDS: diphenhdrAMINE HCL 50 MG/1 ML VL IM ONE (09:14)
[2024-12-24 10:00] VITALS: O2SAT 97
--- NOTE | 2024-12-24 10:08 | DVH ---
Procedure: CT CT AB PEL WO CON-NO ORAL OR IV 12/24/2024 09:15 AM Indication: Mid to upper abdominal pain nausea and vomiting Comparison Study: CT ABD PELVIS WO CONTRAST on DOS: 05/29/20, CT ABD PELVIS WO CONTRAST on DOS: , CT ABD PELVIS WO CONTRAST on DOS: 02/19/20 Technique: Axial images were obtained and reformatted in coronal and sagittal planes. All CT scans at this medical facility are performed using dose modulation techniques as appropriate to a performed e xam including the following: Automated exposure control was utilized; adjustment of the MA and/or KV according to patient size; and use of iterative reconstruction technique. CT Dose: CTDI volume is 6.2 7 mGy. Dose-length product is 332.21 mGy*cm FINDINGS: Lower Chest: Unremarkable. Hepatobiliary: Unremarkable. Spleen: Unremarkable. Pancreas: Unremarkable. Adrenal Glands: Unremarkable. tract: Moderately atrophic right kidney, mild hydronephrosis and proximal hydroureter without urin jonna calculi. The right kidney measures 8 cm in craniocaudal. The left kidney measures 10 cm in crani ocaudal. In the previous CT scan of 05/29/2020, the right kidney measured 9 cm in craniocaudal. The u rinary bladder is unremarkable. GI tract: The stomach is grossly normal in appearance. No evidence of small bowel obstruction. The la rge bowel is unremarkable. The appendix is normal. Lymphatics: No mesenteric, retroperitoneal or periportal lymphadenopathy. Vasculature: The abdominal aorta is normal in caliber. Pelvic Organs: Anteverted uterus. No adnexal lesion. Trace fluid in cul-de-sac, likely physiologic. Bones/soft tissues: No acute abnormality. Old healed lateral right noted. Other: None. IMPRESSION: 1. No CT evidence of acute abnormality in the abdomen or pelvis. 2. Mild asymmetric right renal atrophy, mild right hydronephrosis and proximal hydroureter without ob structing urinary calculi. Recommend clinical correlation to rule out pyelonephritis. Evaluation is l imited in this exam without IV contrast.
[2024-12-24] MEDS ORDERED: CEPH500T PO (10:28)
[2024-12-24] MEDS ORDERED: cefTRIAXone 1GM/50ML D5W 50 ML IV ONE (10:30)
[2024-12-24 10:35] VITALS: BP 116/60; PULSE 64; RESP 13
== END 2024-12-24 10:40 | disposition home or self-care (01) ==
LOC: ER 04:58
DX: R10.13 Epigastric pain (principal); R10.10 Upper abdominal pain, unspecified; R10.30 Lower abdominal pain, unspecified; N39.0 Urinary tract infection, site not specified; I10 Essential (primary) hypertension; Z79.899 Other long term (current) drug therapy; Z90.49 Acquired absence of other specified parts of digestive tract
CPT/HCPCS: 36415; 74176; 80053; 80307; 81001; 81025; 83690; 85025; 96361; 96372; 96374; 96375; 99285; J1200; J1630; J2270; J2405; J3010; J7030

== ENCOUNTER 2025-08-22 09:55 | Emergency (ER) | payer OTHER, MEDICAID ==
[~2025-08-22] VITALS: Ht 154.9 cm; Wt 52.0 kg
[~2025-08-22 09:55] MED LIST changes: +CEPH500T PO
[2025-08-22 10:02] VITALS: BP 127/87; RESP 20; TEMP 98.9; O2SAT 98
--- NOTE | 2025-08-22 10:32 | ECG ---
[facility] Test Date: 2025-08-22 Test Time: 09:58:52 Pat Name: DERRICK DOHERTY Department: [facility] ED Patient ID: [id number] Room: Gender: F Car Storer: loretta : 2000 Requested By: MIRTA WELLS Order Number: [id number] Reading MD: Austin Eller Measurements Intervals [place] Rate: 77 P: 49 [place]: 89 QRS: 58 QRSD: 93 T: 6 QT: 442 QTc: 501 Interpretive Statements Sinus rhythm Atrial premature complex Short [place] interval Prolonged QT interval Electronically Signed On 08-24-2025 10:31:33 PST by Austin Eller Please click the below link to view image of tracing.
[2025-08-22] MEDS: KETOROLAC TROMETH 30 MG/ML 1ML VIAL IV ONE (10:40)
[2025-08-22] MEDS: SODIUM CHLORIDE 0.9% 1,000 ML IV ONE ×3 (10:41→13:15)
[2025-08-22 10:45] VITALS: PULSE 77
--- NOTE | 2025-08-22 10:46 | ED.PDOC ---
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 EMS report on picking the patient up at a hotel for having sharp and stabbing bilateral flank pain which has a 10/10 on the pain scale associated with lower abdominal pain which has a 10/10 on the pain scale and chest pain which is also a 10/10 on the pain scale. EMS note that the patient had 10 episodes of emesis but was unwitnessed by them. Patient notes on the symptoms starting today. Denies any other symptoms at this time. Denies chills, fever, /D, SOB. No other associated symptoms, modifiers, recent injuries or sick contacts present at this time. Chief Complaint: Flank Pain Time Seen by MD: 10:00 Primary Care Provider: FAITH Parsons Notes: Nurses Notes, Medications, Allergies Allergies: Coded Allergies: NO KNOWN ALLERGIES (Unverified , 12/06/19) Home Meds Active Scripts Cephalexin Monohydrate (Cephalexin) 500 Mg Tab, 1 TAB PO QID, #40 TAB Prov:NIKKI GOODRICH MD 12/24/24 Reported Medications Labetalol Hcl (Labetalol Hcl) 200 Mg Tab, 200 MG PO DAILY for 30 Days, MG 12/07/19 Information Source: Patient, Emergency Med Personnel Mode of Arrival: EMS Severity: Moderate Timing: Hours Duration: Since onset, Hours Prehospital treatment: None Past Medical History Past Medical History (Other): Porphyria Angy Surgical History: Denies all surgeries TAIL TRIMMER History: No Pertinent TAIL TRIMMER History Family History Family History: Reviewed,noncontributory to illness, Unknown Social History Smoker: Non-Smoker Alcohol: Occasionally Drugs: Marijuana Lives In: Home Constitutional: denies: chills, diaphoresis, fatigue, fever, malaise, sweats, weakness, others EENTM: denies: blurred vision, double vision, ear bleeding, ear discharge, ear drainage, ear pain, ear ringing, eye pain, eye redness, hearing loss, mouth pain, mouth swelling, nasal discharge, nose bleeding, nose congestion, nose pain, photophobia, tearing, throat pain, throat swelling, voice changes, others Respiratory: denies: cough, hemoptysis, orthopnea, SOB at rest, shortness of breath, SOB with excertion, stridor, wheezing, others Cardiovascular: reports: chest pain; denies: dizzy spells, diaphoresis, Dyspnea on exertion, edema, irregular heart beat, left arm pain, lightheadedness, palpitations, PND, syncope, others Gastrointestinal: reports: abdominal pain (Lower), vomiting (10 Episodes today); denies: abdomen distended, blood streaked bowels, constipated, diarrhea, dysphagia, difficulty swallowing, hematemesis, melena, nausea, poor appetite, poor fluid intake, rectal bleeding, rectal pain, others Genitourinary: reports: flank pain (Bilateral); denies: abnormal vagina bleeding, burning, dyspareunia, dysuria, frequency, hematuria, incontinence, pain, , vagina discharge, urgency, others Neurological: denies: dizziness, fainting, headache, left sided numbness, left sided weakness, numbness, paresthesia, pre-existing deficit, right sided numbness, right sided weakness, seizure, speech problems, tingling, tremors, weakness, others Musculoskeletal: denies: back pain, gout, joint pain, joint swelling, muscle pain, muscle stiffness, neck pain, others Integumetry: denies: bruises, change in color, change in hair/nails, dryness, laceration, lesions, lumps, rash, wounds, others Allergic/Immunocompromised: denies: Difficulty Healing, Frequent Infections, Hives, Itching, others Hematologic/Lymphatic: denies: anemia, blood clots, easy bleeding, easy bruising, swollen glands, others Endocrine: denies: excessive hunger, excessive sweating, excessive thirst, excessive urination, flushing, intolerance to cold, intolerance to heat, unexplained weight gain, unexplained weight loss, others Psychiatric: denies: anxiety, bipolar disorder, depression, hopeless, panic disorder, schizophrenia, sleepless, suicidal, others All Other Systems: Reviewed and Negative Physical Exam General Appearance: Moderate Distress, Normal HEENT: Normal ENT Inspection, Pharynx Normal, TMs Normal Neck: Full Range of Motion, Non-Tender, Normal, Normal Inspection Respiratory: Chest Non-Tender, Lungs Clear, No Accessory Muscle Use, No Respiratory Distress, Normal Breath Sounds Cardiovascular: No Edema, No JVD, No Murmur, No Gallop, Normal Peripheral Pulses, Regular Rate/Rhythm Breast Exam: Deferred Gastrointestinal: No Organomegaly, Non Tender, No Pulsatile Mass, Normal Bowel Sounds, Soft Genitalia: Deferred Pelvic: Deferred Rectal: Deferred Extremities: No calf tenderness, Normal capillary refill, Normal inspection, Normal range of motion, Non-tender, No pedal edema Musculoskeletal : Apperance: Normal Neurologic: Alert, florist manager II-XII nml as Tested, No Motor Deficits, Normal Affect, Normal Mood, No Sensory Deficits Cerebellar Function: NOT DONE Reflexes: NOT DONE Skin: Dry, Normal Color, Warm Peripheral Pulses: 3+ Radial (R), 3+ Radial (L) Lymphatic: No Adenopathy Was a procedure done? Was a procedure done?: No EKG EKG : Pulse Rate (adult): 77 [place]: Normal Cardiac Rhythm: NSR Block: None Hypertrophy: None ST: Normal Differential Dx Considerations may include: Dehydration Electrolyte imbalance X-Ray, Labs, Meds, VS Vital Signs Date Time Temp Pulse Resp B/P (MAP) Pulse Ox O2 Delivery O2 Flow Rate FiO2 08/22/25 10:45 77 08/22/25 10:02 98.9 76 20 127/87 98 98.9 08/22/25 09:58 77 Lab Test 08/22/25 10:20 Range/Units White Blood Count 9.7 4.4-10.8 10^3/uL Red Blood Count 4.63 4.0-5.20 10^6/uL Hemoglobin 13.6 12.2-16.2 g/dL Hematocrit 39.0 36.0-46.0 % Mean Corpuscular Volume 84.2 80.0-100.0 fL Mean Corpuscular Hemoglobin 29.3 28.0-32.0 pg Mean Corpuscular Hemoglobin Concent 34.8 32.0-36.0 g/dL Red Cell Distribution Width 13.0 11.8-14.3 % Platelet Count 176 140-450 10^3/uL Mean Platelet Volume 9.7 6.9-10.8 fL Neutrophils (%) (Auto) 80.5 H 37.0-80.0 % Lymphocytes (%) (Auto) 12.8 10.0-50.0 % Monocytes (%) (Auto) 5.7 0.0-12.0 % Eosinophils (%) (Auto) 0.1 0.0-7.0 % Basophils (%) (Auto) 0.9 0.0-2.0 % Neutrophils # (Auto) 7.8 1.6-8.6 10 ^3/uL Lymphocytes # (Auto) 1.2 0.4-5.4 10 ^3/uL Monocytes # (Auto) 0.5 0-1.3 10 ^3/uL Eosinophils # (Auto) 0 0-0.8 10 ^3/uL Basophils # (Auto) 0.1 0-0.2 10 ^3/uL Nucleated Red Blood Cells 0.2 % Sodium Level 137 136-145 mmol/L Potassium Level 3.2 L 3.5-5.1 mmol/L Chloride Level 100 98-107 mmol/L Carbon Dioxide Level 18 L 20-31 mmol/L Anion Gap 19 H 5-15 Blood Urea Nitrogen 15 9-23 mg/dL Creatinine 1.28 H 0.550-1.02 mg/dL Glomerular Filtration Rate Calc 59 >90 mL/min BUN/Creatinine Ratio 11.7 10.0-20.0 Serum Glucose 97 74-106 mg/dL Calcium Level 9.8 8.7-10.4 mg/dL Current Medications Medications (Trade) Dose Ordered Sig/Kiana Route Start Time Stop Time Status Last Admin Sodium Chloride 1,000 ml @ 1,000 mls/hr Q1H ONCE IV 08/22/25 10:15 08/22/25 11:14 DC 08/22/25 10:41 Ketorolac Tromethamine (Toradol Injection) 30 mg ONCE ONCE IV 08/22/25 10:15 08/22/25 10:16 DC 08/22/25 10:40 Patient alert. Came in because of generalized body aches. Vitals stable. Answering questions. Establish intravenous access. Was given fluids. Check the anion gap. Check the carbon dioxide. Check the creatinine. WBC within normal limits. Fluid related. Explained to the patient she will need to drink plenty of fluids. Was told to follow up with her primary care physician. Was told to come back if there is any problem. Time of 1ST Reevaluation: 10:31 Reevaluation 1ST: Unchanged Patient Education/Counseling: Diagnosis, Treatment, Prognosis Family Education/Counseling: No Family Present SEPSIS Sepsis Screen Date sepsis recognized/suspect: Aug 22, 2025 Time Sepsis recognized/suspect: 953 Recent Procedure: No On Antibiotic Therapy: No Respiratory Rate >20: No Heart Rate >90: Yes Temp<36 C (96.8 F) or >38.3 C: No SBP <90 or MAP <65 mmHG: No New Acute Mental Status Change: No Is the patient on CPAP, BIPAP,: No Physician Orders Urinalysis (08/22/25 10:14) Vital Signs Date Time Temp Pulse Resp B/P (MAP) Pulse Ox O2 Delivery O2 Flow Rate FiO2 08/22/25 10:45 77 08/22/25 10:02 98.9 76 20 127/87 98 98.9 08/22/25 09:58 77 Laboratory Tests Test 08/22/25 10:20 White Blood Count 9.7 10^3/uL (4.4-10.8) Medications Medications Dose Ordered Sig/Kiana Route Start Time Stop Time Status Last Admin Dose Admin Ketorolac Tromethamine 30 mg ONCE ONCE IV 08/22/25 10:15 08/22/25 10:16 DC 08/22/25 10:40 Sodium Chloride 1,000 ml @ 1,000 mls/hr Q1H ONCE IV 08/22/25 10:15 08/22/25 11:14 DC 08/22/25 10:41 Departure 1 Departure Time of Disposition: 13:07 Impression: Primary Impression: Hypokalemia Additional Impressions: Acute intermittent porphyria Dehydration Disposition: 01 HOME / SELF CARE / HOMELESS Condition: Good Discharged With: Self Critical Care Note Critical Care Time?: No Stability Stability form required: No Heart Score Heart Score: Heart Score Response (Comments) Value History N/A 0 EKG N/A 0 Age N/A 0 Risk Factors N/A 0 Troponin N/A 0 Total 0 I personally scribed for MIRTA WELLS MD ([email or web address]) on 08/22/25 at 10:45. Electronically submitted by Heriberto Norris ([email or web address]). MIRTA WELLS MD Aug 22, 2025 10:45
[2025-08-22 10:50] LABS: Hematocrit 39.0 % (36.0-46.0); Hemoglobin 13.6 g/dL (12.2-16.2); Mean Corpuscular Hemoglobin 29.3 pg (28.0-32.0); Mean Corpuscular Volume 84.2 fL (80.0-100.0); Nucleated Red Blood Cells % 0.2 %
[2025-08-22 11:05] LABS: Chloride 100 mmol/L (98-107); Sodium 137 mmol/L (136-145)
[2025-08-22 11:06] LABS: Anion Gap 19 (5-15); Calcium 9.8 mg/dL (8.7-10.4)
[2025-08-22 11:10] LABS: Carbon Dioxide 18 mmol/L (20-31); Potassium 3.2 mmol/L (3.5-5.1)
[2025-08-22 11:11] LABS: BUN/Creatinine Ratio 11.7 (10.0-20.0); Blood Urea Nitrogen 15 mg/dL (9-23); Glucose 97 mg/dL (74-106)
[2025-08-22] MEDS: POTASSIUM EFFERVESENT TAB 25 MEQ PO ONE (13:15)
== END 2025-08-22 15:35 | disposition home or self-care (01) ==
LOC: EDBD 09:55 → ER 09:55
DX: E87.6 Hypokalemia (principal); E80.21 Acute intermittent (hepatic) porphyria; E86.0 Dehydration; Z79.899 Other long term (current) drug therapy
CPT/HCPCS: 36415; 80048; 85025; 93005; 96361; 96374; 99284; J1885; J7030